=== PATIENT | male | born 1950 | race Caucasian/White ===

== ENCOUNTER 2020-01-26 10:31 | Inpatient (IN) | payer MEDICARE, OTHER, SELFPAY ==
--- NOTE | ~2020-01-26 | CT_ITS ---
EXAMINATION: CT lumbar spine wo con DATE: 01/26/2020 11:21 INDICATION: Sudden onset low back pain and inability to walk. TECHNIQUE: Computed tomography (CT) of the lumbar spine was performed without intravenous contrast. A utomated exposure control and iterative reconstruction technique were employed. The dose-length produ ct was 1812.55 mGy-cm. COMPARISON: None FINDINGS: Mild lumbar dextrocurvature. 4 mm retrolisthesis L1 on L2 and L2 on L3. Chronic appearing mild anteri or wedging at T11 through L2. No acute fracture. L1-L5 laminectomies. Posterior spinal fusion with bi lateral vertical amelia and pedicle screw fixation extending from L3 through S1 on the left at L3 and L4 on the right with lucent screw tracks from prior pedicle screws on the right at L5 and S1. The excep tion of on the right at L3-L4 there is solid osseous fusion across the bilateral posterior elements f rom L3 through S1. Small region of high attenuation material which could represent either methylmetha crylate or bone graft material at the L3-L4, L4-L5 and telemetry at the L5-S1 disc spaces. There is f usion across the margins of the L4-L5 and L5-S1 disc spaces. The L3-L4 disc space remains unfused are with moderate disc height loss and with vacuum phenomena. Severe disc height loss at L1-L2 and L2-L3 . Moderate disc height loss at T9-T10 through T12-L1. Partially visualized screw and acetabular compo nent of a likely right total hip arthroplasty. Respiratory motion at the lung base with mild atelecta sis at the right azygos esophageal recess. 5 cm left renal cyst. 2 mm nonobstructing left renal stone . Small amount of ascites in the pelvis. The following disc levels are specifically discussed: T9-T10: Right paracentral posterior disc osteophyte complex. There is mild bilateral facet joint oste oarthritis. There is no neural foraminal stenosis. There is mild central canal stenosis. T10-T11: The disc does not extend beyond the endplate margin. There is moderate bilateral facet joint osteoarthritis. There is mild bilateral neural foraminal stenosis. There is minimal central canal st enosis. T11-T12: Posterior disc osteophyte complex. There is mild bilateral facet joint osteoarthritis. There is moderate bilateral neural foraminal stenosis. There is mild central canal stenosis. T12-L1: Right-sided predominant posterior disc osteophyte complex. There is moderate right and modera te to severe left facet joint osteoarthritis. There is mild left and moderate right neural foraminal stenosis. There is moderate central canal stenosis. L1-L2: Posterior disc osteophyte complex with additional ossification of the posterior longitudinal l igament at the level of both L1 and L2. There is mild bilateral facet joint osteoarthritis. There is severe bilateral neural foraminal stenosis. There is mild central canal stenosis despite posterior de compression. L2-L3: Posterior disc osteophyte complex. There is severe left and moderate right facet joint osteoar thritis. There is moderate right and severe left neural foraminal stenosis. There is mild central can al stenosis despite posterior decompression. L3-L4: Oser disc osteophyte complex. Right facet joint remains unfused with severe osteoarthritis. Th e left facet joint is fused. There is moderate bilateral neural foraminal stenosis. There is mild andrea tral canal stenosis despite posterior decompression. L4-L5: Disc space and bilateral facet joints are fused. There is mild to moderate left and minimal ri ght neural foraminal stenosis. There is no central canal stenosis with posterior decompression. L5-S1: Disc space and bilateral facet joints are fused. There is mild right and moderate left neural foraminal stenosis. There is no central canal stenosis. IMPRESSION: 1. Moderate lower thoracic and severe lumbar spondylosis with combined anterior and posterior spinal fusion at L3-S1. N
--- NOTE | ~2020-01-26 | XR_ITS ---
EXAMINATION: XR chest 1V portable INDICATION: Shortness of breath TECHNIQUE: Portable AP chest at 1833 hours COMPARISON: 01/26/2020 FINDINGS: The lung volumes are low. There is subsegmental atelectasis of the right midlung zone. Ther e appear to be minimal opacities of the left mid and lower lung zones. No pleural effusion or pneumot horax is identified. The cardiomediastinal silhouette is stable. Surgical clips are noted in the neck . IMPRESSION: 1. Minimal opacities of the left mid and lower lung zones, consistent with atelectasis versus pneumon ia. Reviewed, dictated and finalized at location A. PRACTITIONER IMPRESSION: 1. Minimal opacities of the left mid and lower lung zones, consistent with atel ectasis versus pneumonia.
--- NOTE | ~2020-01-26 | CT_ITS ---
EXAMINATION: CT knee RT wo con DATE: 01/27/2020 15:28 INDICATION: Right knee pain TECHNIQUE: Computed tomography (CT) of the right knee was performed without intravenous contrast. The dose-length product (DLP) was 667.88 mGy-cm. Automated exposure control and iterative reconstruction technique were employed. COMPARISON: Right knee radiograph from yesterday FINDINGS: There are changes of total knee arthroplasty. Orthopedic hardware appears to be intact. The re is a moderate to large size knee joint effusion which contains foci of gas. Again noted is a defor med patella with what appears to be exuberant heterotopic ossification. No fracture is identified. Th ere is calcified atherosclerosis. IMPRESSION: 1. Moderate-sized joint effusion containing gas concerning for septic joint. Reviewed, dictated and finalized at location A. ING MACHINE OPERATOR HELPER
--- NOTE | ~2020-01-26 | XR_ITS ---
XR hip BI 2V w AP pelvis DATE: 01/26/2020 13:20 INDICATION: Fall one week ago. Back pain, leg weakness TECHNIQUE: AP pelvis. AP, lateral and crosstable lateral views of both hips COMPARISON: 12/11/2013 pelvis and left hip FINDINGS: There is lumbar laminectomy and posterior lumbar surgical spinal fusion. The pubic symphysis and sacroiliac joints are intact. No pelvic fracture or bone destruction. Status post bilateral total hip arthroplasty. No fracture or dislocation or bone destruction is noted at either hip. IMPRESSION: Status post lumbar laminectomy and posterior spinal surgical fusion Status post bilateral total hip arthroplasty Reviewed, dictated and finalized at location A. ING CENTER MANAGER
--- NOTE | ~2020-01-26 | CT_ITS ---
EXAMINATION: CT brain wo con DATE: 01/29/2020 01:18 INDICATION: Altered mental status. TECHNIQUE: Computed tomography (CT) of the head was performed without intravenous contrast. The mA wa s adjusted according to patient size. Iterative reconstruction technique was employed. The dose-lengt h product was 681.00 mGy-cm. COMPARISON: Head CT 01/01/2019 FINDINGS: There are old infarcts involving the bilateral basal ganglia. There are scattered areas of low attenuation in the cerebral white matter. There is chronic encephalomalacia in the anteroinferior frontal lobes. There is no intracranial hemorrhage, acute infarction, or abnormal intracranial mass lesion. The ventricles are normal in size. The paranasal sinuses are clear. The mastoid air cells are normal. The orbits are normal. IMPRESSION: 1. 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 2. Chronic encephalomalacia in the anteroinferior frontal lobes. This distribution is typical of trau matic brain injury. 3. Stable mild nonspecific cerebral white matter disease, which likely represents chronic small vesse l ischemic disease. Reviewed, dictated and finalized at location A. CUTTER IMPRESSION: 1. 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 2. Chronic encephalomalacia in the anteroinferior frontal lobes. This distribut ion is typical of traumatic brain injury. 3. Stable mild nonspecific cerebral white matter disease, which likely represen ts chronic small vessel ischemic disease.
--- NOTE | ~2020-01-26 | XR_ITS ---
EXAMINATION: XR knee RT 2V DATE: 01/26/2020 11:09 INDICATION: Right knee injury and pain. TECHNIQUE: 2 views of right knee were obtained. COMPARISON: None. FINDINGS: There is a total right knee arthroplasty with tibial and femoral components in near-anatomi c alignment without periprosthetic lucency to suggest loosening or infection. No fracture. The patell a is deformed with exuberant heterotopic ossification versus bone cement. There is a moderate-sized k nee joint effusion with loose bodies. There is anterior knee soft tissue swelling. IMPRESSION: 1. Total right knee arthroplasty with normal femoral and tibial components. 2. 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 3. Moderate-sized knee joint effusion with loose bodies. Reviewed, dictated and finalized at location B. ARED FOODS ASSOCIATE
--- NOTE | ~2020-01-26 | XR_ITS ---
EXAMINATION: XR chest 1V portable INDICATION: Hypoxia TECHNIQUE: Portable AP chest at 2241 hours COMPARISON: 01/01/2019 FINDINGS: The lung volumes are low. The lungs are free of acute opacities. There is no pleural effusi on or pneumothorax. The heart size is normal. There is a questionable hiatal hernia. Osteoarthritis i s noted in the shoulders. There are surgical clips in the neck. IMPRESSION: 1. No acute cardiopulmonary abnormality. Reviewed, dictated and finalized at location A. ERCIAL MAKEUP ARTIST
--- NOTE | ~2020-01-26 | MR_ITS ---
. EXAMINATION: MR thoracic spine wo/w con, MR lumbar spine wo/w con DATE: 01/27/2020 13:23 INDICATION: New bilateral leg weakness and left lumbar radiculopathy. TECHNIQUE: 1. Magnetic resonance imaging (MRI) of the right sixth spine was performed without and with 20 mL Mul tihance intravenous contrast. Sagittal localizer T1-weighted FSE of the cervicothoracic spine was obt ained. Sequences included sagittal T2-weighted FSE, sagittal T2-weighted FS FSE, sagittal T1-weighted FSE and axial T1-weighted SE. Postcontrast sequences included axial T2-weighted FSE, sagittal T1-kayli ghted FS FSE, and axial T1-weighted FS SE. 2. MRI of the lumbar spine was performed without and with the identical 20 mL MultiHance intravenous contrast bolus. Sequences included sagittal T2-weighted FSE, sagittal T2-weighted FS FSE, and sagitta l and axial T1-weighted FSE. Postcontrast sequences included axial T2-weighted FSE, sagittal T1-weigh milo FSE, and axial and sagittal T1-weighted FS FSE. COMPARISON: None FINDINGS: Thoracic spine: Moderate cervical spondylosis seen on the business affairs manager images. Thoracic alignment is normal. Chronic minimal anterior wedging at T11 and mild anterior wedging at T12. More cephalad thoracic vertebral body heig hts are normal. T1 hyperintense hemangioma at T5. Marrow signal is otherwise normal. Severe disc heig ht loss at C7-T1, moderate disc height loss at C6-C7 and mild disc height loss throughout the thoraci c spine. There is normal signal in the spinal cord. No abnormally enhancing lesions identified. Parav ertebral soft tissues are unremarkable. The following disc levels are specifically discussed: C7-T1: Disc is mildly bulging. Severe bilateral uncovertebral osteoarthritis. There is mild right and moderate left facet osteoarthritis. There is moderate left and moderate to severe right neural lara inal stenosis. There is mild central canal stenosis. T1-T2: Annular fissure and small central disc extrusion with disc material extending couple millimete rs cephalad to the level of the inferior endplate of T1. There is severe bilateral facet osteoarthrit is. There is mild bilateral neural foraminal stenosis. There is mild central canal stenosis. T2-T3: The disc does not extend beyond the endplate margins. There is moderate bilateral facet osteoa rthritis. There is mild left and minimal right neural foraminal stenosis. There is no central canal s tenosis. T3-T4: The disc does not extend beyond the endplate margins. There is mild bilateral facet osteoarthr itis. There is mild bilateral neural foraminal stenosis. There is no central canal stenosis. T4-T5: The disc does not extend beyond the endplate margins. There is mild left and moderate right fa cet osteoarthritis. There is mild bilateral neural foraminal stenosis. There is no central canal sten osis. T5-T6: Disc does not extend beyond the endplate margins. There is mild right and moderate left facet osteoarthritis. There is mild left neural foraminal stenosis. There is no central canal stenosis. T6-T7: Disc does not extend beyond the endplate margins. There is mild bilateral facet osteoarthritis . There is no neural foraminal stenosis. There is no central canal stenosis. T7-T8: Disc does not extend beyond the endplate margins. There is mild bilateral facet osteoarthritis . There is no neural foraminal stenosis. There is no central canal stenosis. T8-T9: Disc does not extend beyond the endplate margins. There is mild bilateral facet osteoarthritis . There is no neural foraminal stenosis. There is no central canal stenosis. T9-T10: Annular fissure and small central disc protrusion. There is mild bilateral facet osteoarthrit is. There is no neural foraminal stenosis. There is mild central canal stenosis. T10-T11: Disc does not extend beyond the endplate margins. There is mild to moderate bilateral facet osteoarthritis. There i
[2020-01-26 10:50] VITALS: BP 152/88; PULSE 92; RESP 20; TEMP 36.1; O2SAT 97
--- NOTE | 2020-01-26 11:00 | ED.BACK ---
HPI - Back Pain/Injury General Chief Complaint: Back Pain/Injury Stated Complaint: ambulance Time Seen by Provider: 01/26/20 10:31 Source: patient Mode of arrival: EMS Limitations: no limitations History of Present Illness HPI Narrative: 69-year-old man with a history of chronic low back pain and osteoarthritis comes in by EMS complaining of severe back pain that started while he was doing repairs in his basement. Patient states that his pain started yesterday, however his states that his pain started a week ago. She also states that he had a fall approximately 2 weeks ago while walking his dog. His states that he has been unable to get out of bed / chairs on his own and his son has been coming more to help him every day because she is unable to move him. His states that he is unable to lift his left leg and the patient states that the weakness is intermittent and in both legs. Pain in his back radiates to his left anterior thigh. His doctor recently called in oxycodone and steroids for him but they are not adequate. He denies any numbness or tingling. He denies falls. MD elicited complaint: back pain Pertinent past history: prior back pain and back surgery (x5) Onset (ago): day(s) (2) Timing: constant Severity: moderate Pain scale (0-10): 10 Quality: sharp and aching Location: lumbar spine Radiation: none Exacerbating factors: movement and supine positioning Relieving factors: immobilization Context: turning/twisting and bending Associated symptoms: difficulty walking Related Data Home Medications Medication Instructions Recorded Confirmed allopurinol 100 mg PO DAILY 01/01/19 01/01/19 aspirin 81 mg PO DAILY 01/01/19 01/01/19 atorvastatin 10 mg PO DAILY 01/01/19 01/01/19 cyclobenzaprine 10 mg PO DAILY 01/01/19 01/01/19 docusate sodium 100 mg PO BID 01/01/19 01/01/19 fluoxetine 100 mg PO DAILY 01/01/19 01/01/19 lamotrigine 75 mg PO DAILY 01/01/19 01/01/19 levetiracetam 1,000 mg PO BID 01/01/19 01/01/19 levothyroxine 175 mcg PO DAILY 01/01/19 01/01/19 lisinopril 40 mg PO DAILY 01/01/19 01/01/19 metformin 1,000 mg PO BID 01/01/19 01/01/19 nabumetone 500 mg PO BID 01/01/19 01/01/19 sitagliptin [Januvia] 100 mg PO DAILY 01/01/19 01/01/19 Allergies Allergy/AdvReac Type Severity Reaction Status Date / Time ciprofloxacin [From Cipro] Allergy Unknown Verified 01/01/19 10:30 Review of Systems Constitutional: Constitutional: Denies chills, Denies fever(s) and Denies weakness Eyes: Eyes: Denies change in vision and Denies photophobia ENT: Denies dysphagia, Denies nasal congestion and Denies sore throat Cardiovascular: Cardiovascular: Denies chest pain and Denies radiating jaw, neck or arm pain Respiratory: Respiratory: Denies cough, Denies dyspnea and Denies wheezing Gastrointestinal: Gastrointestinal: Denies abdominal pain, Denies nausea and Denies vomiting Genitourinary: Genitourinary: Denies dysuria, Denies urinary frequency and Denies urinary incontinence Musculoskeletal: Musculoskeletal: Reports as per HPI, Reports back pain, Denies arthralgias and Denies joint swelling Integumentary/Breasts: Skin/Breast: Denies pruritus, Denies erythema and Denies rash Neurologic: Reports vertigo, Reports dizziness and Reports syncope Hematologic/Lymphatic: Hematologic/Lymphatic: Denies easy bleeding and Denies easy bruising Allergic/Immunologic: Allergic/Immunologic: Denies lip swelling and Denies tongue swelling PMFSH Past Medical History Medical History (Updated 01/26/20 @ 15:03 by Ryan Andre MD) Back pain Depression Diabetes mellitus type 2 in obese Gout Hypertension Hypothyroid Seizures Skull fracture Urolithiasis Surgical History Surgical History History of carpal tunnel surgery History of hip replacement, total History of thyroidectomy, subtotal Hx of inguinal hernia surgery Status post lumbar laminectomy Total knee replacemen
[2020-01-26] MEDS: ONDANSETRON INJ 4 MG/2 ML VIAL IV PUSH (11:08)
[2020-01-26] MEDS: HYDROmorphone HCL INJ (*CRX) 2 MG/ML VIAL 0.5 MG IV PUSH ×3 (11:08→22:14)
[2020-01-26 12:02] LABS: Appearance Urine Clear (Clear); Bilirubin Urine Negative (Negative); Color Urine Yellow (Yellow); Glucose Urine UA 3+ (Negative); Ketones Urine Negative (Negative); Leukocyte Esterase Ur Negative (Negative); Nitrate Urine Negative (Negative); Protein Urine Trace (Negative); Specific Grav Ur 1.015 (1.010-1.020); Urobilinogen Urine 0.2 mg/dL (0.2-1.0)
[2020-01-26 12:15] LABS: Add Urine Microscopic? YES; Blood Urine Trace-Intact (Negative)
[2020-01-26 12:16] LABS: Bacteria Urine 1+ /hpf; Squamous Epithelial Cell Urine Occasional /hpf (Few); WBC Urine 0-3 /hpf (0-3)
[2020-01-26 13:03] LABS: Basophils Absolute Auto 0.02 K/mm3 (0.00-0.10); Basophils Percent Auto 0.1 % (0.0-1.0); Hematocrit 45.3 % (37.0-46.0); Immature Granulocyte Absolute 0.11 K/mm3 (0.00-0.00); Immature Granulocyte Percent A 0.7 % (0.0-0.0); Lymphocytes Absolute Auto 0.48 K/mm3 (1.10-4.50); Lymphocytes Percent Auto 3.2 % (18.0-42.0); Mean Corpuscular HGB Conc 33.1 g/dL (32.0-36.0); Mean Corpuscular Volume 93.6 fL (78.0-102.0); Mean Platelet Volume 9.2 fl (8.7-11.0); Neutrophils Absolute Auto 13.2 K/mm3 (1.7-7.2); Platelet Count Result 220 K/mm3 (150-420); Red Blood Count 4.84 M/mm3 (4.70-6.10); Red Cell Distribution Width 13.2 % (11.6-14.4)
[2020-01-26 13:20] LABS: Alanine Aminotransferase 33 U/L (16-63); Albumin Level 3.3 g/dL (3.4-5.0); Alkaline Phosphatase 100 U/L (46-116); Anion Gap 11 mmol/L (8-16); Aspartate Amino Transferase 15 U/L (15-37); Bilirubin,Total 1.4 mg/dL (0.00-1.00); Blood Urea Nitrogen 23 mg/dL (7-18); Calcium 8.8 mg/dL (8.5-10.1); Carbon Dioxide 25 mmol/L (21-32); Chloride 99 mmol/L (98-108); Estimated CRCL calculation 76 ml/min; Estimated Glomerular Filt Rate > 60; Glucose 192 mg/dL (70-99); Osmolality Calculated 288 mOsm/kg (285-295); Potassium 4.3 mmol/L (3.5-5.1); Sodium 135 mmol/L (136-145); Total Protein 7.5 g/dL (6.4-8.2)
[2020-01-26 13:23] LABS: Lactic Acid Reflex 1.3 mmol/L (0.4-2.0)
[2020-01-26 13:31] VITALS: BP 151/70; PULSE 100; O2SAT 93
[2020-01-26 13:34] LABS: CRP > 25.0 mg/dL (0.0-0.9)
--- NOTE | 2020-01-26 13:54 | PC.NURSE ---
physical therapy here to evaluate patient
[2020-01-26 14:08] LABS: Erythrocyte Sedimentation Rate 27 mm/hr (0-20)
[2020-01-26 15:39] VITALS: BP 148/82; PULSE 90; RESP 16; O2SAT 94
[2020-01-26 16:00] VITALS: BP 149/94; PULSE 108; RESP 20; TEMP 36.7; O2SAT 92
[2020-01-26 16:30] VITALS: BMI 34.4
[2020-01-26] MEDS: metFORMIN HCL 500 MG TABLET 1000 MG PO (17:55)
[2020-01-26] MEDS: levETIRAcetam 500 MG TABLET 1000 MG PO (17:55)
[2020-01-26] MEDS: predniSONE 20 MG TABLET BY MOUTH (17:55)
[2020-01-26] MEDS: DOCUSATE SODIUM 100 MG CAPSULE PO (17:55)
[2020-01-26] MEDS: lamoTRIgine 25 MG TABLET 50 MG PO (18:01)
[2020-01-26 18:08] LABS: Glucose Point of Care 208 (65-105)
--- NOTE | 2020-01-26 21:48 | PC.NURSE ---
MD notified of patient's increased agitation and confusion, attempts to climb out of bed, yelling at nurses, uncooperative with care. Patient attempt to sit up but is unable to sit up and falls back into bed. SR up x2. Call light and belongings within reach.
--- NOTE | 2020-01-26 21:52 | PC.NURSE ---
MD to come up to floor to see patient.
[2020-01-26 22:05] VITALS: BP 161/81; PULSE 113; RESP 20; TEMP 37.2; O2SAT 92; O2SAT 94
--- NOTE | 2020-01-26 22:12 | PC.NURSE ---
here to see patient. New orders received.
[2020-01-26 22:39] LABS: Glucose Point of Care 159 (65-105)
--- NOTE | 2020-01-26 22:40 | PC.NURSE ---
Patient and all belongings moved from room 205 to room 206 due to increased confusion and pending result of COVID 19 test.
[2020-01-26 23:24] LABS: SARS-CoV-2 Ag Negative (Negative)
[2020-01-26 23:48] VITALS: BP 160/88; PULSE 106; RESP 22; TEMP 37.7; O2SAT 94
[2020-01-27 05:24] LABS: Basophils Absolute Auto 0.02 K/mm3 (0.00-0.10); Basophils Percent Auto 0.2 % (0.0-1.0); Eosinophils Absolute Auto 0.01 K/mm3 (0.02-0.50); Eosinophils Percent Auto 0.1 % (1.0-6.0); Hematocrit 45.4 % (37.0-46.0); Hemoglobin 14.5 g/dL (12.4-15.3); Immature Granulocyte Percent A 0.8 % (0.0-0.0); Lymphocytes Absolute Auto 0.44 K/mm3 (1.10-4.50); Lymphocytes Percent Auto 3.4 % (18.0-42.0); Mean Corpuscular HGB Conc 31.9 g/dL (32.0-36.0); Mean Corpuscular Volume 93.8 fL (78.0-102.0); Mean Platelet Volume 9.1 fl (8.7-11.0); Monocytes Absolute Auto 1.26 K/mm3 (0.10-0.90); Monocytes Percent Auto 9.8 % (2.0-11.0); Neutrophils Percent Auto 85.7 % (50.0-70.0); Platelet Count Result 227 K/mm3 (150-420); Red Blood Count 4.84 M/mm3 (4.70-6.10); Red Cell Distribution Width 13.3 % (11.6-14.4); White Blood Count 12.8 K/mm3 (4.8-10.8)
[2020-01-27 05:40] LABS: Alanine Aminotransferase 30 U/L (16-63); Alkaline Phosphatase 108 U/L (46-116); Anion Gap 9 mmol/L (8-16); Aspartate Amino Transferase 18 U/L (15-37); Bilirubin,Total 1.6 mg/dL (0.00-1.00); Blood Urea Nitrogen 22 mg/dL (7-18); Calcium 8.7 mg/dL (8.5-10.1); Carbon Dioxide 27 mmol/L (21-32); Chloride 99 mmol/L (98-108); Estimated CRCL calculation 75 ml/min; Estimated Glomerular Filt Rate > 60; Glucose 184 mg/dL (70-99); Osmolality Calculated 288 mOsm/kg (285-295); Potassium 4.4 mmol/L (3.5-5.1); Sodium 135 mmol/L (136-145); Total Protein 7.5 g/dL (6.4-8.2)
[2020-01-27] MEDS: LEVOTHYROXINE SODIUM 100 MCG TABLET PO (06:04)
[2020-01-27] MEDS: LEVOTHYROXINE SODIUM 75 MCG TABLET PO (06:04)
[2020-01-27] MEDS: HYDROmorphone HCL INJ (*CRX) 2 MG/ML VIAL 0.5 MG IV PUSH ×2 (07:54→13:12)
[2020-01-27] MEDS: ONDANSETRON INJ 4 MG/2 ML VIAL IV PUSH ×2 (07:54→13:12)
--- NOTE | 2020-01-27 07:57 | PM.IMHP ---
H&P: HPI History of Present Illness Date/Time: 01/27/20 07:57 Chief complaint: Lumbar Radiculopathy Narrative: Sea Narvaez is a 69 year old male 69-year-old man with a history of chronic low back pain and osteoarthritis comes in by EMS complaining of severe back pain that started while he was doing repairs in his basement. Patient states that his pain started yesterday, however his states that his pain started a week ago. She also states that he had a fall approximately 2 weeks ago while walking his dog. His states that he has been unable to get out of bed / chairs on his own and his son has been coming more to help him every day because she is unable to move him. His states that he is unable to lift his left leg and the patient states that the weakness is intermittent and in both legs. Pain in his back radiates to his left anterior thigh. His doctor recently called in oxycodone and steroids for him but they are not adequate. He denies any numbness or tingling. He denies falls. [facility] Past Medical History Medical History (Updated 01/26/20 @ 15:03 by Ryan Andre MD) Back pain Depression Diabetes mellitus type 2 in obese Gout Hypertension Hypothyroid Seizures Skull fracture Urolithiasis Surgical History Surgical History History of carpal tunnel surgery History of hip replacement, total History of thyroidectomy, subtotal Hx of inguinal hernia surgery Status post lumbar laminectomy Total knee replacement status Social History Social History Years smoked: 15 Smoking status: Former smoker Tobacco type: cigarettes Alcohol intake: current Substance use: never Additional living arrangements comments: Uses cane Gender identity (if verbalized by the patient): Male Meds Home Medications and Allergies Home Medications Medication Instructions Recorded Confirmed Type allopurinol 100 mg PO DAILY 01/01/19 01/26/20 History aspirin 81 mg PO DAILY 01/01/19 01/26/20 History atorvastatin 10 mg PO DAILY 01/01/19 01/26/20 History cyclobenzaprine 10 mg PO DAILY 01/01/19 01/26/20 History docusate sodium 100 mg PO BID 01/01/19 01/26/20 History fluoxetine 100 mg PO DAILY 01/01/19 01/26/20 History lamotrigine 50 mg PO BID #30 tablet 01/01/19 01/26/20 Rx levetiracetam 1,000 mg PO BID 01/01/19 01/26/20 History levothyroxine 175 mcg PO DAILY 01/01/19 01/26/20 History lisinopril 40 mg PO DAILY 01/01/19 01/26/20 History metformin 1,000 mg PO BID 01/01/19 01/26/20 History nabumetone 500 mg PO BID 01/01/19 01/26/20 History oxycodone 5 mg PO PRN PRN 01/26/20 01/26/20 History prednisone See Rx Instructions .ROUTE .COMPLEX 01/26/20 01/26/20 History Allergies Allergy/AdvReac Type Severity Reaction Status Date / Time ciprofloxacin [From Cipro] Allergy Unknown Verified 01/01/19 10:30 Vital Signs Vital Signs - 24 hr 01/26/20 10:50 01/26/20 13:31 01/26/20 15:39 Temperature 96.9 F L Pulse Rate 92 100 90 Respiratory Rate 20 16 Blood Pressure 152/88 H 151/70 H 148/82 H Pulse Oximetry 97 93 94 01/26/20 16:00 01/26/20 22:05 01/26/20 23:48 Temperature 98.1 F 99 F 100 F H Pulse Rate 108 H 113 H 106 H Respiratory Rate 20 20 22 H Blood Pressure 149/94 H 161/81 H 160/88 H Pulse Oximetry 92 92 94 H&P: Results Labs Labs: Short CBC 01/26/20 01/27/20 Range/Units 12:57 05:08 WBC 15.0 H 12.8 H (4.8-10.8) K/mm3 Hgb 15.0 14.5 (12.4-15.3) g/dL Hct 45.3 45.4 (37.0-46.0) % Plt Count 220 227 (150-420) K/mm3 [facility] 01/26/20 01/27/20 12:57 05:08 Sodium 135 L 135 L Potassium 4.3 4.4 Chloride 99 99 Carbon Dioxide 25 27 BUN 23 H 22 H Creatinine 1.12 1.13 Glucose 192 H 184 H Calcium 8.8 8.7 Liver Function 01/26/20 01/27/20 Range/Units 12:57 05:08 Total Bilirubin 1.4 H 1.6 H (0.00-1.00) mg/dL AST 15 18 (15-37) U/L ALT
[2020-01-27 08:00] VITALS: BP 156/86; PULSE 92; RESP 16; TEMP 36.7; O2SAT 98
[2020-01-27 08:06] LABS: Glucose Point of Care 224 (65-105)
[2020-01-27] MEDS: predniSONE 20 MG TABLET BY MOUTH ×2 (09:12→16:25)
[2020-01-27] MEDS: polyethylene glycoL 3350 17 GM POWD.PACK PO (09:12)
[2020-01-27] MEDS: allopurinoL 100 MG TABLET PO (09:12)
[2020-01-27] MEDS: DOCUSATE SODIUM 100 MG CAPSULE PO ×2 (09:12→16:25)
[2020-01-27] MEDS: CYCLOBENZAPRINE HCL 10 MG TABLET PO (09:12)
[2020-01-27] MEDS: metFORMIN HCL 500 MG TABLET 1000 MG PO ×2 (09:12→16:25)
[2020-01-27] MEDS: ATORVASTATIN 10 MG TABLET PO (09:12)
[2020-01-27] MEDS: lisinopriL 20 MG TABLET 40 MG PO (09:12)
[2020-01-27] MEDS: levETIRAcetam 500 MG TABLET 1000 MG PO ×2 (09:12→16:25)
[2020-01-27] MEDS: ASPIRIN 81 MG ENTERIC TABLET PO (09:12)
--- NOTE | 2020-01-27 09:45 | WPDREHABHP ---
H&P: HPI History of Present Illness Date/Time: 01/27/20 09:45 Chief complaint: Lumbar Radiculopathy Narrative: Sea Narvaez is a 69 year old male [facility] Past Medical History Medical History (Updated 01/26/20 @ 15:03 by Ryan Andre MD) Back pain Depression Diabetes mellitus type 2 in obese Gout Hypertension Hypothyroid Seizures Skull fracture Urolithiasis Surgical History Surgical History History of carpal tunnel surgery History of hip replacement, total History of thyroidectomy, subtotal Hx of inguinal hernia surgery Status post lumbar laminectomy Total knee replacement status Social History Social History Years smoked: 15 Smoking status: Former smoker Tobacco type: cigarettes Alcohol intake: current Substance use: never Additional living arrangements comments: Uses cane Gender identity (if verbalized by the patient): Male Meds Home Medications and Allergies Home Medications Medication Instructions Recorded Confirmed Type allopurinol 100 mg PO DAILY 01/01/19 01/26/20 History aspirin 81 mg PO DAILY 01/01/19 01/26/20 History atorvastatin 10 mg PO DAILY 01/01/19 01/26/20 History cyclobenzaprine 10 mg PO DAILY 01/01/19 01/26/20 History docusate sodium 100 mg PO BID 01/01/19 01/26/20 History fluoxetine 100 mg PO DAILY 01/01/19 01/26/20 History lamotrigine 50 mg PO BID #30 tablet 01/01/19 01/26/20 Rx levetiracetam 1,000 mg PO BID 01/01/19 01/26/20 History levothyroxine 175 mcg PO DAILY 01/01/19 01/26/20 History lisinopril 40 mg PO DAILY 01/01/19 01/26/20 History metformin 1,000 mg PO BID 01/01/19 01/26/20 History nabumetone 500 mg PO BID 01/01/19 01/26/20 History oxycodone 5 mg PO PRN PRN 01/26/20 01/26/20 History prednisone See Rx Instructions .ROUTE .COMPLEX 01/26/20 01/26/20 History Allergies Allergy/AdvReac Type Severity Reaction Status Date / Time ciprofloxacin [From Cipro] Allergy Unknown Verified 01/01/19 10:30 Vital Signs Vital Signs - 24 hr 01/26/20 10:50 01/26/20 13:31 01/26/20 15:39 Temperature 96.9 F L Pulse Rate 92 100 90 Respiratory Rate 20 16 Blood Pressure 152/88 H 151/70 H 148/82 H Pulse Oximetry 97 93 94 01/26/20 16:00 01/26/20 22:05 01/26/20 23:48 Temperature 98.1 F 99 F 100 F H Pulse Rate 108 H 113 H 106 H Respiratory Rate 20 20 22 H Blood Pressure 149/94 H 161/81 H 160/88 H Pulse Oximetry 92 92 94 01/27/20 08:00 Temperature 98.0 F Pulse Rate 92 Respiratory Rate 16 Blood Pressure 156/86 H Pulse Oximetry 98 H&P: Results Labs Labs: Short CBC 01/26/20 01/27/20 Range/Units 12:57 05:08 WBC 15.0 H 12.8 H (4.8-10.8) K/mm3 Hgb 15.0 14.5 (12.4-15.3) g/dL Hct 45.3 45.4 (37.0-46.0) % Plt Count 220 227 (150-420) K/mm3 BMP 01/26/20 01/27/20 12:57 05:08 Sodium 135 L 135 L Potassium 4.3 4.4 Chloride 99 99 Carbon Dioxide 25 27 BUN 23 H 22 H Creatinine 1.12 1.13 Glucose 192 H 184 H Calcium 8.8 8.7 Liver Function 01/26/20 01/27/20 Range/Units 12:57 05:08 Total Bilirubin 1.4 H 1.6 H (0.00-1.00) mg/dL AST 15 18 (15-37) U/L ALT 33 30 (16-63) U/L Alkaline Phosphatase 100 108 (46-116) U/L Albumin 3.3 L 3.0 L (3.4-5.0) g/dL Urine 01/26/20 Range/Units 11:44 Urine Color Yellow (Yellow) Urine Appearance Clear (Clear) Urine pH 5.0 (5.0-8.0) Ur Specific [place] 1.015 (1.010-1.020) Urine Protein Trace H (Negative) Urine Glucose (UA) 3+ H (Negative)
--- NOTE | 2020-01-27 09:48 | PM.IMHP ---
H&P: HPI History of Present Illness Date/Time: 01/27/20 09:48 Chief complaint: Lumbar Radiculopathy Narrative: Sea Narvaez is a 69 year old male who comes in for increased lumbar pain. This occurred while patient was walking his dog. The dog started to run away and the patient fell down as result. Patient has had multiple surgeries: lumbar fusion August 2002 and October 2003 left hip replacement August 2007 left hip revision September 2010 bilateral knee replacements January 2013 and right knee revision January 2017. Patient also has a history of gout, Hypercholesteremia, bipolar, seizures, hypothyroidism, hypertension, and diabetes. , Kenzie, provided history for this patient. Review of Systems Constitutional: Constitutional: Reports no additional constitutional complaints Cardiovascular: Cardiovascular: Reports no additional cardiovascular complaints, Denies chest pain, Denies chest pain at rest and Denies chest pain with activity Respiratory: Respiratory: Reports no additional respiratory complaints, Denies chest congestion, Denies cough, Denies dyspnea and Denies dyspnea on exertion Gastrointestinal: Gastrointestinal: Reports no additional gastrointestinal complaints Musculoskeletal: Comments: Lumbar pain that gets worse with activity, unable to stand on his own at this time COUNT INCLUDES [facility] Past Medical History Medical History (Updated 01/27/20 @ 13:46 by DARI Khan) Back pain Bipolar 1 disorder, depressed Depression Diabetes mellitus type 2 in obese Gout Hypertension Hypothyroid Seizures Skull fracture Urolithiasis Surgical History Surgical History History of carpal tunnel surgery History of hip replacement, total History of thyroidectomy, subtotal Hx of inguinal hernia surgery Status post lumbar laminectomy Total knee replacement status Social History Social History Years smoked: 15 Smoking status: Former smoker Tobacco type: cigarettes Alcohol intake: current Substance use: never Additional living arrangements comments: Uses cane Gender identity (if verbalized by the patient): Male Meds Home Medications and Allergies Home Medications Medication Instructions Recorded Confirmed Type allopurinol 100 mg PO DAILY 01/01/19 01/26/20 History aspirin 81 mg PO DAILY 01/01/19 01/26/20 History atorvastatin 10 mg PO DAILY 01/01/19 01/26/20 History cyclobenzaprine 10 mg PO DAILY 01/01/19 01/26/20 History docusate sodium 100 mg PO BID 01/01/19 01/26/20 History fluoxetine 100 mg PO DAILY 01/01/19 01/26/20 History lamotrigine 50 mg PO BID #30 tablet 01/01/19 01/26/20 Rx levetiracetam 1,000 mg PO BID 01/01/19 01/26/20 History levothyroxine 175 mcg PO DAILY 01/01/19 01/26/20 History lisinopril 40 mg PO DAILY 01/01/19 01/26/20 History metformin 1,000 mg PO BID 01/01/19 01/26/20 History nabumetone 500 mg PO BID 01/01/19 01/26/20 History oxycodone 5 mg PO PRN PRN 01/26/20 01/26/20 History prednisone See Rx Instructions .ROUTE .COMPLEX 01/26/20 01/26/20 History Allergies Allergy/AdvReac Type Severity Reaction Status Date / Time ciprofloxacin [From Cipro] Allergy Unknown Verified 01/01/19 10:30 Vital Signs Vital Signs - 24 hr 01/26/20 10:50 01/26/20 13:31 01/26/20 15:39 Temperature 96.9 F L Pulse Rate 92 100 90 Respiratory Rate 20 16 Blood Pressure 152/88 H 151/70 H 148/82 H Pulse Oximetry 97 93 94 01/26/20 16:00 01/26/20 22:05 01/26/20 23:48 Temperature 98.1 F 99 F 100 F H Pulse Rate 108 H 113 H 106 H Respiratory Rate 20 20 22 H Blood Pressure 149/94 H 161/81 H 160/88 H Pulse Oximetry 92 92 94 01/27/20 08:00 Temperature 98.0 F Pulse Rate 92 Respiratory Rate 16 Blood Pressure 156/86 H Pulse Oximetry 98 Exam Const: General: cooperative, no acute distress, alert and awake Nutritional Appearance: overweight Limitations: other limitations (due
--- NOTE | 2020-01-27 11:22 | PC.NURSE ---
Patient in MRI at this time
[2020-01-27] MEDS: lamoTRIgine 25 MG TABLET 50 MG PO ×2 (12:23→20:40)
[2020-01-27] MEDS: FLUoxetine HCL 10 MG CAPSULE 100 MG PO (12:24)
--- NOTE | 2020-01-27 13:00 | PC.NURSE ---
+blood cult told to nurse and agriculture instructor marina miramontes
[2020-01-27 13:27] LABS: Glucose Point of Care 232 (65-105)
[2020-01-27 16:00] VITALS: BP 174/95; PULSE 120; RESP 18; TEMP 37.4; O2SAT 95
--- NOTE | 2020-01-27 16:41 | PC.NURSE ---
erp aware of ct of r knee. shivering/sweating. temp 99.3. new orders.
[2020-01-27 16:48] LABS: Glucose Point of Care 379 (65-105)
[2020-01-27] MEDS: ACETAMINOPHEN 325 MG TABLET 650 MG PO (17:04)
[2020-01-27] MEDS: SODIUM CHLORIDE 0.9% IV 1,000 ML 120 ML IV CONT (17:05)
--- NOTE | 2020-01-27 17:32 | PM.EVENT ---
Event Note Event Note Event Note: 69-year-old male with history chronic low back pain admitted with acute left lumbar radiculopathy and pain control, [place] [address], has a history of right total knee arthroplasty, with a small area of erythema, CT scan of the right knee was performed which showed that hardware was intact, but there is a moderate to large size joint effusion containing gas consistent with a septic joint. The patient had blood cultures performed that came back coagulase negative Staph, patient was started on Zosyn in addition vancomycin was ordered, patient started on normal saline, vital signs currently stable with blood pressure at 174/95 heart rate is 120, normal saline was was started, Tylenol Q 6 p.r.n.. Patient had elevated blood sugars currently on metformin and will add sliding scale of insulin.
[2020-01-27 20:00] VITALS: O2SAT 94
[2020-01-27 20:30] VITALS: BP 136/80; PULSE 96; RESP 22; TEMP 36.2; O2SAT 94
[2020-01-27 21:11] LABS: Glucose Point of Care 229 (65-105)
[2020-01-27 23:17] VITALS: BP 140/81; PULSE 93; RESP 22; TEMP 36.6; O2SAT 96
--- NOTE | 2020-01-27 23:19 | PC.NURSE ---
Repositioned to left side for comfort, pillows used for positioning, re oriented to time of day, oriented to person and place, aware that his knee is infected, aware doctor is at [facility] where knee surgery done previously,
[2020-01-28] VITALS (19 sets, daily range): BP systolic 105–163; BP diastolic 57–104; PULSE 111–196; RESP 18–48; TEMP 35.7–37.3; O2SAT 87–96
--- NOTE | 2020-01-28 01:03 | PC.NURSE ---
Patient removed pillows from his back and is laying on his back with legs elevated, fluids infusing
--- NOTE | 2020-01-28 02:33 | PC.NURSE ---
Repositioned to back, pillows under knees
--- NOTE | 2020-01-28 03:18 | PC.NURSE ---
Repositioned from back to left side
--- NOTE | 2020-01-28 03:46 | PC.NURSE ---
Repositioned to right side
[2020-01-28] MEDS: SODIUM CHLORIDE 0.9% IV 1,000 ML 120 ML IV CONT ×2 (04:53→15:35)
[2020-01-28] MEDS: LEVOTHYROXINE SODIUM 75 MCG TABLET PO (05:39)
[2020-01-28] MEDS: LEVOTHYROXINE SODIUM 100 MCG TABLET PO (05:39)
[2020-01-28 07:42] LABS: Glucose Point of Care 203 (65-105)
--- NOTE | 2020-01-28 08:05 | PM.IMPN ---
Progress Note: A&P Assessment and Plan (1) Exacerbation of chronic back pain: Code(s): M54.9 - Dorsalgia, unspecified; G89.29 - Other chronic pain Status: Acute Assessment and Plan: 01/27/2020 patient is using a sit to stand assist device, Flexeril, lidocaine patch, prednisone, Dilaudid, and his home medication nabumetone, at this time pain seems to be manageable, patient had thoracic and lumbar MRI today looking forward to radiologist's report (2) Diabetes mellitus type 2 in obese: Code(s): E11.69 - Type 2 diabetes mellitus with other specified complication; E66.9 - Obesity, unspecified Status: Acute Assessment and Plan: 01/27/2020 consistent carb diet, metformin, Accu-Cheks, monitor lab values, make changes to medications as needed, patient is currently on steroids (3) Gout: Code(s): M10.9 - Gout, unspecified Status: Acute Assessment and Plan: 01/27/2020 continue allopurinol, patient asymptomatic at this time (4) Seizures: Code(s): R56.9 - Unspecified convulsions Status: Acute Assessment and Plan: 01/27/2020 patient takes Lamictal and Keppra, patient has not had any seizure activity (5) Bipolar 1 disorder, depressed: Code(s): F31.9 - Bipolar disorder, unspecified Status: Acute Assessment and Plan: 01/27/2020 continue patient's Lamictal, patient stable at this time (6) Hypothyroid: Code(s): E03.9 - Hypothyroidism, unspecified Status: Acute Assessment and Plan: 01/27/2020 continue levothyroxine (7) Positive blood cultures: Code(s): R78.81 - Bacteremia Status: Acute Assessment and Plan: 01/27/2020 blood culture came back positive for gram positive cocci, examined patient head to toe front to back no obvious signs of infection other than a healing scab over wound on the right knee that is without redness swelling or drainage and no tenderness, potential source of infection is urine however this shows 1 positive bacteria, no wbc's, negative nitrates, negative leukocyte esterase, there is a culture pending for the urine, WBC count 12.8 down from 15 today for (8) Sepsis: Code(s): A41.9 - Sepsis, unspecified organism Status: Acute (9) Septic joint of right knee joint: Code(s): M00.9 - Pyogenic arthritis, unspecified Status: Acute Subjective Date/time seen: 01/28/20 08:05 Objective Data Vital Signs Vital Signs: Vital Signs - 24 hr 01/27/20 16:00 01/27/20 20:00 01/27/20 20:30 Temperature 99.3 F 97.2 F L Pulse Rate 120 H 96 Respiratory Rate 18 22 H Blood Pressure 174/95 H 136/80 Pulse Oximetry 95 94 94 01/27/20 23:17 01/28/20 07:44 Temperature 98 F 98.9 F Pulse Rate 93 111 H Respiratory Rate 22 H 18 Blood Pressure 140/81 133/78 Pulse Oximetry 96 92 Intake/Output Intake/Output: Intake & Output 01/25/20 01/26/20 01/27/20 01/28/20 23:59 23:59 23:59 23:59 Intake Total 240 2411 2950 Output Total 525 2000 650 Balance -930 483 7378 Meds/Results Medications: Active Medications Generic Name Dose Route Start Last Admin Trade Name Freq PRN Reason Stop Dose Admin Acetaminophen 650 mg 01/27/20 16:34 01/27/20 17:04 Acetaminophen 325 Mg Tablet PO 650 mg Q6H PRN Administration Mild Pain (1-3) or Fever Allopurinol 100 mg 01/27/20 09:00 01/27/20 09:12 Allopurinol 100 Mg Tablet PO 100 mg DAILY PARAM Administration Aspirin 81 mg 01/27/20 09:00 01/27/20 09:12 Aspirin 81 Mg Enteric Tablet PO 81 mg DAILY PARAM Administration Atorvastatin Calcium 10 mg 01/27/20 09:00 01/27/20 09:12 Atorvastatin 10 Mg Tablet PO 10 mg DAILY PARAM Administration Cyclobenzaprine HCl 10 mg 01/27/20 09:00 01/27/20 09:12 Cyclobenzaprine Hcl 10 Mg Tablet PO 10 mg DAILY PARAM Administration Dextrose 12.5 gm 01/27/20 17:36 Dextrose 50% 25 Gm/50 Ml Syringe IV PUSH PRN PRN Hypoglycemia Protocol
[2020-01-28] MEDS: LIDOCAINE 5% PATCH 1 PATCH TRANSDERM (08:36)
[2020-01-28] MEDS: FLUoxetine HCL 10 MG CAPSULE 100 MG PO (08:37)
[2020-01-28] MEDS: polyethylene glycoL 3350 17 GM POWD.PACK PO (08:37)
[2020-01-28] MEDS: lamoTRIgine 25 MG TABLET 50 MG PO (08:37)
[2020-01-28] MEDS: ASPIRIN 81 MG ENTERIC TABLET PO (08:38)
[2020-01-28] MEDS: ATORVASTATIN 10 MG TABLET PO (08:38)
[2020-01-28] MEDS: CYCLOBENZAPRINE HCL 10 MG TABLET PO (08:38)
[2020-01-28] MEDS: allopurinoL 100 MG TABLET PO (08:38)
[2020-01-28] MEDS: DOCUSATE SODIUM 100 MG CAPSULE PO (08:38)
[2020-01-28] MEDS: metFORMIN HCL 500 MG TABLET 1000 MG PO ×2 (08:38→19:10)
[2020-01-28] MEDS: levETIRAcetam 500 MG TABLET 1000 MG PO ×2 (08:39→19:11)
[2020-01-28] MEDS: predniSONE 20 MG TABLET BY MOUTH ×2 (08:39→19:11)
[2020-01-28] MEDS: lisinopriL 20 MG TABLET 40 MG PO (08:39)
[2020-01-28] MEDS: SACCHAROMYCES BOULARDII 250 MG CAPSULE PO (09:45)
[2020-01-28] MEDS: MORPHINE SULFATE (*CRX) 2 MG/ML INJ IV PUSH (10:15)
[2020-01-28 11:42] LABS: Glucose Point of Care 196 (65-105)
--- NOTE | 2020-01-28 12:56 | PM.DS ---
DS: Admitting Diagnosis Admitting Diagnosis Admitting Diagnosis: Lumbar Radiculopathy Patient has had multiple surgeries: lumbar fusion August 2002 and October 2003 [facility] right hip replacement July 2005 [facility] left hip replacement August 2007 [facility] left hip revision September 2010 [facility] bilateral knee replacements January 2013 and right knee revision January 2017 [facility] Pt was transferred to [facility] in [place]. I was not here during the transfer. In fact the Pt was suppose to go to [facility] in [facility]. Dr Arrington informed me this morning that the Pt had a NSTEMI some time last night and was tranferred to [facility] in [place]. DS: Discharge Diagnosis Discharge Diagnosis (1) Exacerbation of chronic back pain: Code(s): M54.9 - Dorsalgia, unspecified; G89.29 - Other chronic pain Status: Acute Assessment and Plan: 01/27/2020 patient is using a sit to stand assist device, Flexeril, lidocaine patch, prednisone, Dilaudid, and his home medication nabumetone, at this time pain seems to be manageable, patient had thoracic and lumbar MRI today looking forward to radiologist's report 01/28/2020 Dilaudid seem to make this patient quite confused so this was discontinued in mold changer to morphine with a 1 time Ativan which could be added p.r.n. if needed (2) Diabetes mellitus type 2 in obese: Code(s): E11.69 - Type 2 diabetes mellitus with other specified complication; E66.9 - Obesity, unspecified Status: Acute Assessment and Plan: 01/27/2020 consistent carb diet, metformin, Accu-Cheks, monitor lab values, make changes to medications as needed, patient is currently on steroids 01/28/2020 glucose levels have been between 160 and 380, at this time were going to continue the current regimen as we are waiting for a call back on patient's room number at [facility] (3) Gout: Code(s): M10.9 - Gout, unspecified Status: Acute Assessment and Plan: 01/27/2020 continue allopurinol, patient asymptomatic at this time 01/28/2020 no changes at this time (4) Seizures: Code(s): R56.9 - Unspecified convulsions Status: Acute Assessment and Plan: 01/27/2020 patient takes Lamictal and Keppra, patient has not had any seizure activity 01/28/2020 no seizure activity while patient has been in house (5) Bipolar 1 disorder, depressed: Code(s): F31.9 - Bipolar disorder, unspecified Status: Acute Assessment and Plan: 01/27/2020 continue patient's Lamictal, patient stable at this time 01/28/2020 no changes to regimen (6) Hypothyroid: Code(s): E03.9 - Hypothyroidism, unspecified Status: Acute Assessment and Plan: 01/27/2020 continue levothyroxine (7) Positive blood cultures: Code(s): R78.81 - Bacteremia Status: Acute Assessment and Plan: 01/27/2020 blood culture came back positive for gram positive cocci, examined patient head to toe front to back no obvious signs of infection other than a healing scab over wound on the right knee that is without redness swelling or drainage and no tenderness, potential source of infection is urine however this shows 1 positive bacteria, no wbc's, negative nitrates, negative leukocyte esterase, there is a culture pending for the urine, WBC count 12.8 down from 15 today for 01/28/2020 update on blood cultures shows Staphylococcus aureus, sensitivities pending, (8) Sepsis: Code(s): A41.9 - Sepsis, unspecified organism Status: Acute Assessment and Plan: 01/28/2020 patient has positive blood culture for Staphylococcus aureus, patient was hypertensive on arrival with one elevated temp of 100? F, since then patient has been afebrile, blood pressures have reduced to normal, patient has been tachycardic up to the 110s but no lower the 90s, likely source of infection is right knee and on outside chance UTI however urine only showed 1+
[2020-01-28] MEDS: LORazepam INJ (*CRX) 2 MG/ML VIAL 1 MG IV PUSH ×2 (13:03→20:22)
--- NOTE | 2020-01-28 13:50 | PC.NURSE ---
Patient confused, trying to get out of bed. IV ativan given. Dr. Arrington attempted right knee aspiration. No results. Patient spo2 dropped to 87%RA. 2 liters o2 applied. Rechecked 91%. Increased to 3 liters o2. Patient awaiting bed at [facility] for septic knee.
--- NOTE | 2020-01-28 15:00 | PM.OP ---
Procedure Note - Brief Procedure Note - Brief Date of procedure: 01/28/20 Pre-op diagnosis: Lumbar Radiculopathy Surgeon: Ken Arrington MD 01/28/2020 14:00 Patient has been accepted for transfer. They asked that we tap the joint. Informed consent was obtained from the . Following this the area thought to be most productive for aspirating the joint was repeatedly washed with Betadine. Then the area was injected with Lidocaine 1% with epi roughly 3 cc. Following this the joint was entered with an 18 gague needle in an attempt to aspirate. No fluid was obtained. He tolerated the procedure well. I did not feel further attempts would benefit the patient.
[2020-01-28] MEDS: LIDO 1%/EPINEPHRINE 1:100,000 20 ML VIAL 5 ML INFILTRATE ×2 (15:34)
[2020-01-28 17:24] LABS: Vancomycin Trough 5.7 ug/mL (10.0-15.0)
--- NOTE | 2020-01-28 17:35 | ECG_ITS ---
Measurements Intervals [place] Rate: 165 P: CO: 0 QRS: 45 QRSD: 108 T: -15 QT: 257 QTc: 426 Interpretive Statements ATRIAL FIBRILLATION WITH RAPID VENTRICULAR RESPONSE DELAYED PRECORDIAL R/S TRANSITION BORDERLINE ST-T WAVE ABNORMALITY- INF/HIGH LAT LEADS BASELINE ARTIFACT- V4-V6 ABNORMAL ECG Electronically Signed On 01-29-2020 8:27:40 SEWER BRICKLAYER by Zen Kwon D.O.
[2020-01-28] MEDS: METOPROLOL TARTRATE INJ 5 MG/5 ML VIAL IV PUSH (17:37)
[2020-01-28] MEDS: AMIODARONE 150 MG/D5W 100 ML 150 MG/100 ML BAG 600 MG IV CONT (18:05)
--- NOTE | 2020-01-28 18:09 | WPDPN ---
Objective Data Vital Signs Vital Signs: Vital Signs - 24 hr 01/27/20 20:00 01/27/20 20:30 01/27/20 23:17 Temperature 36.2 C L 36.6 C Pulse Rate 96 93 Respiratory Rate 22 H 22 H Blood Pressure 136/80 140/81 Pulse Oximetry 94 94 96 01/28/20 07:44 01/28/20 13:30 01/28/20 13:54 Temperature 37.2 C Pulse Rate 111 H 120 H 112 H Respiratory Rate 18 22 H Blood Pressure 133/78 Pulse Oximetry 92 87 L 93 01/28/20 15:51 01/28/20 16:00 Temperature 37.3 C Pulse Rate 112 H 112 H Respiratory Rate 24 H Blood Pressure 134/90 Pulse Oximetry 93 Intake/Output Intake/Output: Intake & Output 01/25/20 01/26/20 01/27/20 01/28/20 23:59 23:59 23:59 23:59 Intake Total 240 2411 4480 Output Total 525 2000 2450 Balance -797 059 0541 Meds/Results Medications: Active Medications Generic Name Dose Route Start Last Admin Trade Name Freq PRN Reason Stop Dose Admin Acetaminophen 650 mg 01/27/20 16:34 01/27/20 17:04 Acetaminophen 325 Mg Tablet PO 650 mg Q6H PRN Administration Mild Pain (1-3) or Fever Allopurinol 100 mg 01/27/20 09:00 01/28/20 08:38 Allopurinol 100 Mg Tablet PO 100 mg DAILY PARAM Administration Aspirin 81 mg 01/27/20 09:00 01/28/20 08:38 Aspirin 81 Mg Enteric Tablet PO 81 mg DAILY PARAM Administration Atorvastatin Calcium 10 mg 01/27/20 09:00 01/28/20 08:38 Atorvastatin 10 Mg Tablet PO 10 mg DAILY PARAM Administration Cyclobenzaprine HCl 10 mg 01/27/20 09:00 01/28/20 08:38 Cyclobenzaprine Hcl 10 Mg Tablet PO 10 mg DAILY PARAM Administration Dextrose 12.5 gm 01/27/20 17:36 Dextrose 50% 25 Gm/50 Ml Syringe IV PUSH PRN PRN Hypoglycemia Protocol Docusate Sodium 100 mg 01/26/20 17:00 01/28/20 08:38 Docusate Sodium 100 Mg Capsule PO 100 mg BID PARAM Administration Fluoxetine HCl 100 mg 01/28/20 09:00 01/28/20 08:37 Fluoxetine Hcl 10 Mg Capsule PO 100 mg QAM PARAM Administration Glucagon 1 mg 01/27/20 17:36 Glucagon For Inj 1 Mg Vial IM PRN PRN Hypoglycemia Protocol Glucose 15 gm 01/27/20 17:36 Glucose Oral Gel 15 Gm Of Glucse In 37.5 Gm Tube PO PRN PRN Hypoglycemia Protocol Piperacillin/Tazobactam/Dextrose 3.375 gm in 50 mls @ 100 mls/hr 01/27/20 13:45 01/28/20 13:23 Zosyn 3.375 Gm/D5w 50ml Pm IVPB 100 mls/hr Q6H PARAM Administration Sodium Chloride 1,000 mls @ 120 mls/hr 01/27/20 16:30 01/28/20 15:35 Normal Saline Iv IV CONT 120 mls/hr .Q8H20M PARAM Administration Vancomycin HCl 1,500 mg in 500 mls @ 333.333 mls/hr 01/27/20 17:35 01/28/20 06:20 Vancomycin 1,500 Mg/D5w 500 Ml IVPB Infused Q12H PARAM Infusion Dextrose 1,000 mls @ 100 mls/hr 01/27/20 17:36 Dextrose 5% 1,000 Ml IVPB PRN PRN Hypoglycemia Protocol Amiodarone HCl/Dextrose 360 mg in 200 mls @ 33.333 mls/hr 01/28/20 17:48 Nexterone 360 Mg/D5w 200 Ml IV CONT 01/28/20 23:47 .Q6H ONE 1 MG/MIN Amiodarone HCl/Dextrose 360 mg in 200 mls @ 16.667 mls/hr 01/28/20 17:50 Nexterone 360 Mg/D5w 200 Ml IV CONT .Q12H PARAM 0.5 MG/MIN Insulin Human Lispro 3 - 6 units 01/28/20 08:00 01/28/20 11:43 Insulin Human Lispro (*Bkc) 100 Units/Ml SUB-Q Not Given TIDWM PARAM Protocol Lamotrigine 50 mg 01/27/20 21:00 01/28/20 08:37 Lamotrigine 25 Mg Tablet PO 50 mg Q12HR PARAM Administration Levetiracetam 1,000 mg 01/26/20 17:00 01/28/20 08:39 Levetiracetam 500 Mg Tablet PO 1,000 mg BID PARAM Administration Levothyroxine Sodium 100 mcg 01/27/20 06:30 01/28/20 05:39 Levothyroxine Sodium 100 Mcg Tablet PO 100 mcg DAILY@0630 PARAM Administration Levothyroxine Sodium 75 mcg 01/27/20 06:30 01/28/20 05:39 Levothyroxine Sodium 75 Mcg Tablet PO 75 mcg DAILY@0630 PARAM Administration Lidocaine 1 patch 01/28/20 09:00 01/28/20 08:36 Lidocaine 5% Patch TRANSDERM 1 patch DAILY PARAM Administration Lis
[2020-01-28] MEDS: AMIODARONE 360 MG/D5W 200 ML 360 MG/200 ML BAG 33.33 MG IV CONT (18:11)
[2020-01-28] MEDS: AMIODARONE 360 MG/D5W 200 ML 360 MG/200 ML BAG 16.67 MG IV CONT (18:11)
[2020-01-28 18:22] LABS: Anion Gap 16 mmol/L (8-16); Blood Urea Nitrogen 23 mg/dL (7-18); Calcium 8.3 mg/dL (8.5-10.1); Carbon Dioxide 23 mmol/L (21-32); Chloride 95 mmol/L (98-108); Estimated CRCL calculation 74 ml/min; Estimated Glomerular Filt Rate > 60; Glucose 223 mg/dL (70-99); Magnesium 1.7 mg/dL (1.8-2.4); Osmolality Calculated 288 mOsm/kg (285-295); Potassium 4.1 mmol/L (3.5-5.1); Sodium 134 mmol/L (136-145)
[2020-01-28 18:26] LABS: Troponin I > 80.0 ng/L (0.00-60.4)
[2020-01-28] MEDS: ASPIRIN 81 MG CHEWABLE TABLET 324 MG PO (19:11)
[2020-01-28 19:20] LABS: Base Excess ABG -6.2 mmol/L (0-2); HCO3 ABG 16.7 mmol/L (23-29); Oxygen Content ABG 22.1 %vol (16.0-22.0); Oxygen Saturation ABG 97.8 % (95-97); Oxyhemoglobin 95.4 % (94-100); PCO2 ABG 27.6 mmHg (35-45); PO2 ABG 96.4 mmHg (75-85); Total Hemoglobin 16.4 g/dL
[2020-01-28 19:21] LABS: Device NASAL CANNULA; Modified Allen's Test Pass; Site Drawn RIGHT RADIAL
--- NOTE | 2020-01-28 19:29 | PC.NURSE ---
17:00 124/70 113 17:15: 66/28 1730: 125/80 1745 110/69 137 1800 108/63 148 1815 135/97 156 1830 114/87 160 1845 139/70 139 1900 135/71 136 1905 134/79 137 1910 129/77 137 Amiodarone 150mgIV push @ 1750 Amiodarone 360mg/200ml @ 33ml/hr @1755 cardizem 10mg IV push @ 1840 cardizem 10ml/hr @ 1842 cardizem 12ml/hr @ 1850 cardizem 15ml/hr @ 1900 Patient confused, alert to self only. No c/o chest pain, pressure. Patient diaphoretic, pale. Telemetry alarmed pulse rate 170. Dr. Arrington notified. Dr. Arrington came directly to 206. EKG ordered Afib RVR. 1715 doctor aware of bed at [place] for septic right knee. Cancelled as patient deteriorated. Dr. Arrington spoke with patient's , agreed to send patient to [place] for [place]. Chest xray done, opacities/pneumonia. Second EKG complete Afib RVR.
--- NOTE | 2020-01-28 19:34 | ECG_ITS ---
Measurements Intervals [place] Rate: 139 P: [place]: 0 QRS: 42 QRSD: 130 T: -5 QT: 333 QTc: 507 Interpretive Statements ATRIAL FIBRILLATION WITH RAPID VENTRICULAR RESPONSE INTRAVENTRICULAR CONDUCTION DELAY BORDERLINE ST-T WAVE ABNORMALITY- INFERIOR LEADS BASELINE WANDER- II, AVF, V4-V6 ABNORMAL ECG Electronically Signed On 01-29-2020 8:28:33 LINKER UP by Zen Kwon D.O.
[2020-01-28] MEDS: FUROSEMIDE INJ 40 MG/4 ML VIAL (19:35)
[2020-01-28] MEDS: FUROSEMIDE INJ 40 MG/4 ML VIAL IV PUSH (19:40)
[2020-01-28] MEDS: dilTIAZem HCl INJ 25 MG/5 ML VIAL 10 MG IV PUSH (20:05)
[2020-01-28 20:29] LABS: Basophils Absolute Auto 0.02 K/mm3 (0.00-0.10); Basophils Percent Auto 0.2 % (0.0-1.0); Hematocrit 45.9 % (37.0-46.0); Hemoglobin 15.4 g/dL (12.4-15.3); Immature Granulocyte Percent A 0.8 % (0.0-0.0); Lymphocytes Percent Auto 3.9 % (18.0-42.0); Mean Corpuscular HGB Conc 33.6 g/dL (32.0-36.0); Mean Corpuscular Hemoglobin 30.7 pg (27.0-31.0); Mean Corpuscular Volume 91.4 fL (78.0-102.0); Mean Platelet Volume 9.8 fl (8.7-11.0); Monocytes Absolute Auto 1.31 K/mm3 (0.10-0.90); Monocytes Percent Auto 10.2 % (2.0-11.0); Neutrophils Absolute Auto 10.9 K/mm3 (1.7-7.2); Neutrophils Percent Auto 84.9 % (50.0-70.0); Platelet Count Result 219 K/mm3 (150-420); Red Blood Count 5.02 M/mm3 (4.70-6.10); Red Cell Distribution Width 13.4 % (11.6-14.4); White Blood Count 12.9 K/mm3 (4.8-10.8)
[2020-01-28 20:37] LABS: INR 1.1; Prothrombin Time 11.9 Seconds (9.50-12.10)
[2020-01-28] MEDS: HEPARIN SODIUM 5,000 UNITS/ML VIAL 5000 UNITS (20:50)
[2020-01-28] MEDS: HEPARIN SODIUM 5,000 UNITS/ML VIAL 4000 UNITS IV PUSH (21:00)
[2020-01-28] MEDS: HEPARIN SOD/D5W 100 UNITS/ML 25,000 UNITS/250 ML BAG 14.6 UNITS IV CONT (21:09)
[2020-01-28 21:12] LABS: Glucose Point of Care 224 (65-105)
--- NOTE | 2020-01-28 22:14 | PC.NURSE ---
EMS here for patient. Patient for removed to radiology for CT as requested by accepting doctor. Continued on heparin and diltizam.
--- NOTE | 2020-01-28 23:37 | PM.DS ---
DS: Admitting Diagnosis Admitting Diagnosis Admitting Diagnosis: Lumbar Radiculopathy DS: Discharge Diagnosis Discharge Diagnosis (1) Atrial fibrillation: Qualifiers: Atrial fibrillation type: unspecified Qualified Code(s): I48.91 - Unspecified atrial fibrillation Code(s): I48.91 - Unspecified atrial fibrillation Status: Acute Assessment and Plan: The patient was transferred for further care. (2) Myocardial infarction: Qualifiers: Myocardial infarction type: non-ST elevation myocardial infarction Qualified Code(s): I21.4 - Non-ST elevation (NSTEMI) myocardial infarction Code(s): I21.9 - Acute myocardial infarction, unspecified Status: Acute Assessment and Plan: The patient was transferred for further care. DS: Summary Time Spent with Patient Time attestation: Total time spent providing and/or coordinating discharge services: Time spent: Greater than 30 minutes Exam Const: General: cooperative and acute distress Orientation/consciousness: confusion Limitations: altered mental status HENMT: Head: normal to inspection Ears: hearing grossly normal bilaterally General nose exam: Normal external nose present Face and sinus: normal facial exam Mouth: Yes Normal oral and palatal mucosa present Eyes: General: appearance normal, both eyes and all related structures Conjunctivae: conjunctivae normal Sclera: sclerae normal Resp: Auscultation: clear to auscultation bilaterally Cardio: Rate: tachycardic Rhythm: abnormal rhythm GI: Inspection: normal to inspection Auscultation: normal bowel sounds Urinary Catheter: Urinary Catheter: patent and draining Back/Spine/Pelvis: Back: no CVA tenderness Neuro: General: CN's II-XI intact bilaterally Cranial nerves: Yes CN's II-XII intact bilaterally Speech: normal speech Sensory Exam: normal sensation Psych: Appearance: grossly normal Mental Status: mental status grossly normal Affect: normal affect Attitude: cooperative Thought process: Other thought process findings present (confusion) Other: The patient was admitted to a medical bed for acute lumbar pain following a fall on 01/26/2020. He was admitted for pain control and observation. He was later found to have a positive blood culture which grew Coag negative Staph. He had a CT of his right knee that revealed a septic joint. On the evening of 01/27 he went into Afib with a rapid rate. His troponin was elevated. I discussed the situation with his and we transferred him to [place] under the care of Dr Schafer for further care. At the time of his transfer he appeared to be somewhat improved. We had started him on a diltiazem drip while he was here. His troponin was noted to be quite elevated. It appears he had a silent PR based on labs. Every effort was made to control his rate. He was started on Heparin and given an aspirin. His heart rate did decrease some prior to his transfer to [facility]. Discharge condition was guarded Further care will be by the physicians at [facility]. DS: Data Data Completed and Pending Labs on day of discharge: Labs from last 24 hours 01/28/20 01/28/20 01/28/20 19:10 19:10 18:55 WBC 12.9 H RBC 5.02 Hgb 15.4 H Hct 45.9 MCV 91.4 MCH 30.7 MCHC 33.6 RDW 13.4 Plt Count 219 MPV 9.8 Immature Gran % (Auto) 0.8 H Neut % (Auto) 84.9 H Lymph % (Auto) 3.9 L [place] % (Auto) 10.2 Eos % (Auto) 0.0 L Baso % (Auto) 0.2 Lymph # (Auto) 0.50 L [place] # (Auto) 1.31 H Eos # (Auto) 0.00 L Baso # (Auto) 0.02 Abs Immat Gran (auto) 0.10 H Absolute Neuts (auto) 10.9 H Absolute Nucleated RBC 0.00 Nucleated RBC % 0.0 PT 11.9 INR 1.1 APTT 37.0 H Puncture Site Right radial ABG pH 7.40 ABG pCO2 27.6 L ABG pO2 96.4 H ABG PO2/FiO2 Ratio Not Reportable ABG HCO3 16.7 L ABG O2 Saturation 97.8 H ABG O2 Content 2
== END 2020-01-28 22:15 | disposition short-term general hospital (02) | DRG 871 ==
LOC: CHSED 15:02 → CHS2ND 15:21
PROVIDERS: Emergency Medicine; Nurse Practitioner Family; Admitting Provider Emergency Medicine; Emergency Provider Emergency Medicine; Visit Provider Emergency Medicine
DX: A41.01 Sepsis due to Methicillin susceptible Staphylococcus aureus (principal); I21.4 Non-ST elevation (NSTEMI) myocardial infarction; M00.9 Pyogenic arthritis, unspecified; M54.16 Radiculopathy, lumbar region; I48.91 Unspecified atrial fibrillation; E11.9 Type 2 diabetes mellitus without complications; E03.9 Hypothyroidism, unspecified; R56.9 Unspecified convulsions; M10.9 Gout, unspecified; E66.9 Obesity, unspecified; F31.9 Bipolar disorder, unspecified; Z96.643 Presence of artificial hip joint, bilateral; Z96.653 Presence of artificial knee joint, bilateral; Z98.1 Arthrodesis status
CPT/HCPCS: 36415; 36600; 70450; 71045; 72131; 72157; 72158; 73521; 73560; 73700; 80048; 80053; 80202; 81001; 82805; 83605; 83735; 84484; 85025; 85610; 85652; 85730; 86140; 87040; 87077; 87086; 87088; 87186; 87426; 93005; 96361; 96365; 96366; 96367; 96375; 96376; 97163; 99285; A9270; A9577; G0378; J0282; J1170; J1644; J1815; J1940; J2060; J2270; J2405; J2543; J3370; J7030; J7512